=== PATIENT | male | born 1960 | race Caucasian/White ===

== ENCOUNTER 2020-03-15 08:05 | Emergency (ER) | payer BC ==
[2020-03-15] MEDS ORDERED: Lidocaine 1% (PF) 30 ML VIAL ONE (08:53)
== END 2020-03-15 09:20 | disposition home or self-care (01) ==
LOC: NAV ERS 08:05
DX: S60.352A Superficial foreign body of left thumb, initial encounter (principal); W45.8XXA Other foreign body or object entering through skin, initial encounter
CPT/HCPCS: 10120; J2001